=== PATIENT | female | born 1955 | race Caucasian/White ===

== ENCOUNTER 2021-04-07 11:49 | Observation (INO) | payer BC ==
[2021-04-07 12:39] LABS: BASOPHIL % 0.3 % (0.0-0.4); Basophil (Absolute #) 0.02 (0-0.4); Eosinophil % 2.2 % (0.00-5.0); Eosinophil (Absolute #) 0.14 (0-0.5); Hematocrit 37.1 % (35-47); Hemoglobin 11.8 gm/dl (12.0-16.0); Lymphocyte (Absolute #) 1.12 (1.0-4.6); Lymphocytes % 17.7 % (24.0-44.0); Mean Cell Volume 97.6 fl (78-100); Mean Corpuscular Hemoglobin 31.1 pg (26-32); Mean Corpuscular Hgb Concent. 31.8 g/dl (32-36); Monocyte (Absolute #) 0.45 (0.0-1.3); Monocytes % 7.1 % (0.0-12.0); Neutrophil % 72.7 % (36.0-66.0); Platelet Count 232 K/mm3 (150-450); Red Cell Distribution Width 13.3 % (11.5-14.0); White Blood Count 6.3 K/mm3 (4.0-10.5)
[2021-04-07 12:52] LABS: ALBUMIN 4.5 g/dL (3.5-5.0); ALKALINE PHOSPHATASE 108 U/L (38-126); ANION GAP 14.5 MEQ/L (5-15); BLOOD UREA NITROGEN 23 mg/dL (7-17); CHLORIDE 105 mmol/L (98-107); Calcium 9.9 mg/dL (8.4-10.2); Carbon Dioxide 26 mmol/L (22-30); Creatinine 1 0.62 mg/dL (0.52-1.04); EST GLOMERULAR FILTRATION RATE > 60.0 ML/MIN; Glucose 102 mg/dL (74-106); Potassium 3.7 mmol/L (3.5-5.1); SGOT/AST 34 U/L (14-36); SGPT/ALT 40 U/L (0-35); SODIUM 141 mmol/L (137-145); Total Protein 7.2 g/dL (6.3-8.2)
--- NOTE | 2021-04-07 13:02 | ERPHSYRPT ---
- History of Present Illness Time Seen by Provider: 04/07/21 11:54 Source: patient Exam Limitations: no limitations Patient Subjective Stated Complaint: "I think I had a stroke." slurred speech noticed at 1030. last known well before bed last night around 1200. Triage Nursing Assessment: pt to ED c/o possible CVA. reports slurred speech first noticed today at 1030, last known well 1200 last night. lives alone, attempted to make phone call this am and noticed "just not talking right." no other assocaited CVA sx now. hx CVA last in January - c/o BORJAS at that time. no BORJAS reported today. Physician History: 66 years old female with multiple medical problems including multiple strokes in the past, on Eliquis presented in the ER with chief complaint of slurring of speech which she noticed this morning upon waking up trying to make a call, realized her speech was not normal. It is gradually improving but still not back to her baseline. Last well-known is around midnight last night. Denies any blurry vision, double vision, facial drooping, numbness tingling or focal weakness. Off-and-on headache but currently headache free. No sick contact. Time of Onset/Last Time Seen Normal: 04/06/21 1159PM Severity: mild Baseline/Normal Cognition: alert oriented x 3 Current Cognition: alert oriented x 3 Baseline Gait: walks w/o assistance Associated Symptoms: slurred speech Allergies/Adverse Reactions: HARITHA Inhibitors Adverse Reaction (Verified 04/07/21 12:15) Cough Hx Tetanus, Diphtheria Vaccination/Date Given: Yes Hx Influenza Vaccination/Date Given: No Hx Pneumococcal Vaccination/Date Given: No Immunizations Up to Date: No Travel Risk - International Travel Have you traveled outside of the country in past 3 weeks: No - Coronavirus Screening Are you exhibiting any of the following symptoms?: No Close contact with a COVID-19 positive Pt in past 14-21 Days: No - Vaccine Status Have you recieved a Covid-19 vaccination: No - Review of Systems Constitutional: No Symptoms Eyes: No Symptoms Ears, Nose, & Throat: No Symptoms Respiratory: No Symptoms Cardiac: No Symptoms Abdominal/Gastrointestinal: No Symptoms Genitourinary Symptoms: No Symptoms Musculoskeletal: No Symptoms Skin: No Symptoms Neurological: Speech Changes Psychological: Anxiety Endocrine: No Symptoms Hematologic/Lymphatic: No Symptoms Immunological/Allergic: No Symptoms - Past Medical History Pertinent Past Medical History: Yes Neurological History: Stroke Cardiac History: High Cholesterol, Hypertension Respiratory History: Asthma, Sleep Apnea Other Medical History: 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 tumor removal - Social History Smoking Status: Never smoker Exposure to second hand smoke: No Drug Use: none Patient Lives Alone: Yes - Nursing Vital Signs Nursing Vital Signs: Initial Vital Signs Temperature 97.5 F 04/07/21 11:51 Pulse Rate 87 04/07/21 11:51 Respiratory Rate 20 04/07/21 11:51 Blood Pressure 182/107 04/07/21 11:51 O2 Sat by Pulse Oximetry 99 04/07/21 11:51 Pain Scale Pain Intensity 0 - K[place] Coma Scale Best Eye Response ([place]): (4) open spontaneously Best Verbal Response ([place]): (5) oriented Best Motor Response ([place]): (6) obeys commands [place] Total: 15 - Physical Exam General Appearance: no apparent distress, alert, anxiety Eye Exam: bilateral eye: normal inspection, PERRL, EOMI Ears, Nose, Throat Exam: normal ENT inspection, TMs normal, pharynx normal, moist mucous membranes Neck Exam: normal inspection, non-tender, supple, full range of motion, No meningismus Respiratory: normal breath sounds, lungs clear Cardiovascular: regular rate/rhythm, normal heart sounds Gastrointestinal: soft, normal bowel sounds, No tenderness Back Exam: normal inspection Extremity Exam: normal inspection, normal range of motion, pelvis stable Mental Status: alert, oriented x 3, cooperative senior manager Exam: normal hearing, PERRL, No abnormal eye position, No facial asymmetry Coordination/Gait: normal finger to nose, normal gait, normal cerebellar function, negative Romberg's sign Motor/Sensory: no motor deficit, no sensory deficit, no pronator drift, negative Babinski's sign DTR: bicep (R): 2+, bicep (L): 2+, tricep (R): 2+, tricep (L): 2+, knee (R): 2+, knee (L): 2+ Skin Exam: normal color SpO2 Interpretation: normal SpO2: 99 O2 Delivery: Room Air - Course EKG Interpreted by Me: RATE (60), NORMAL AXIS, Q-wave (Inferior), Non-specific ST Changes, Other (Poor R wave progression. Nonspecific T wave changes) Ordered Tests: Active Orders 24 hr Category Date Time Status Motion Picture Narrator STAT Care 04/07/21 11:54 Active EKG-ER Only STAT Care 04/07/21 11:53 Active IV Insertion STAT Care 04/07/21 11:53 Active NPO (ED) STAT Care 04/07/21 11:53 Active Oxygen-ED Only Nasal Cannula 2 lpm Care 04/07/21 11:53 Active POCT Glucose Check STAT Care 04/07/21 11:53 Active CHEST 1 VIEW (PORTABLE) Stat Exams 04/07/21 11:53 Taken HEAD WITHOUT CONTRAST [CT] Stat Exams 04/07/21 11:53 Taken CBC W DIFF Stat Lab 04/07/21 12:22 Completed CMP Stat Lab 04/07/21 12:22 Completed Lactic Acid Stat Lab 04/07/21 12:22 Completed POCT GLUCOSE Stat Lab 04/07/21 12:30 Completed TROPONIN Q3H Lab 04/07/21 12:22 Received TROPONIN Q3H Lab 04/07/21 15:00 Ordered TROPONIN Q3H Lab 04/07/21 18:00 Ordered TROPONIN Q3H Lab 04/07/21 21:00 Ordered UA W/RFX UR CULTURE Stat Lab 04/07/21 11:53 Ordered Lab/Rad Data: Laboratory Result Diagrams 04/07/21 12:22 04/07/21 12:22 Laboratory Results 04/07/21 04/07/21 04/07/21 Range/Units 12:30 12:22 12:22 WBC (4.0-10.5) K/mm3 RBC (4.1-5.4) M/mm3 Hgb (12.0-16.0) gm/dl Hct (35-47) % MCV (78-100) fl MCH (26-32) pg MCHC (32-36) g/dl RDW (11.5-14.0) % Plt Count (150-450) K/mm3 MPV (7.5-11.0) fl Gran % (36.0-66.0) % Eos # (Auto) (0-0.5) Absolute Lymphs (auto) (1.0-4.6) Absolute Monos (auto) (0.0-1.3) Lymphocytes % (24.0-44.0) % Monocytes % (0.0-12.0) % Eosinophils % (0.00-5.0) % Basophils % (0.0-0.4) % Absolute Granulocytes (1.4-6.9) Basophils # (0-0.4) Sodium 141 (137-145) mmol/L Potassium 3.7 (3.5-5.1) mmol/L Chloride 105 (98-107) mmol/L Carbon Dioxide 26 (22-30) mmol/L Anion Gap 14.5 (5-15) MEQ/L BUN 23 H (7-17) mg/dL Creatinine 0.62 (0.52-1.04) mg/dL Estimated GFR > 60.0 ML/MIN Glucose 102 (74-106) mg/dL POC Glucometer 104 (74 to 106) mg/dL Lactic Acid (0.4-2.0) Calcium 9.9 (8.4-10.2) mg/dL Total Bilirubin 0.80 (0.2-1.3) mg/dL AST 34 (14-36) U/L ALT 40 H (0-35) U/L Alkaline Phosphatase 108 (38-126) U/L Troponin I < 0.012 (0.000-0.034) ng/mL Serum Total Protein 7.2 (6.3-8.2) g/dL Albumin 4.5 (3.5-5.0) g/dL 04/07/21 04/07/21 Range/Units 12:22 12:22 WBC 6.3 (4.0-10.5) K/mm3 RBC 3.80 L (4.1-5.4) M/mm3 Hgb 11.8 L (12.0-16.0) gm/dl Hct 37.1 (35-47) % MCV 97.6 (78-100) fl MCH 31.1 (26-32) pg MCHC 31.8 L (32-36) g/dl RDW 13.3 (11.5-14.0) % Plt Count 232 (150-450) K/mm3 MPV 10.0 (7.5-11.0) fl Gran % 72.7 H (36.0-66.0) % Eos # (Auto) 0.14 (0-0.5) Absolute Lymphs (auto) 1.12 (1.0-4.6) Absolute Monos (auto) 0.45 (0.0-1.3) Lymphocytes % 17.7 L (24.0-44.0) % Monocytes % 7.1 (0.0-12.0) % Eosinophils % 2.2 (0.00-5.0) % Basophils % 0.3 (0.0-0.4) % Absolute Granulocytes 4.60 (1.4-6.9) Basophils # 0.02 (0-0.4) Sodium (137-145) mmol/L Potassium (3.5-5.1) mmol/L Chloride (98-107) mmol/L Carbon Dioxide (22-30) mmol/L Anion Gap (5-15) MEQ/L BUN (7-17) mg/dL Creatinine (0.52-1.04) mg/dL Estimated GFR ML/MIN Glucose (74-106) mg/dL POC Glucometer (74 to 106) mg/dL Lactic Acid 0.7 (0.4-2.0) Calcium (8.4-10.2) mg/dL Total Bilirubin (0.2-1.3) mg/dL AST (14-36) U/L ALT (0-35) U/L Alkaline Phosphatase (38-126) U/L Troponin I (0.000-0.034) ng/mL Serum Total Protein (6.3-8.2) g/dL Albumin (3.5-5.0) g/dL - Progress Progress: unchanged, re-examined Progress Note: 04/07/21 13:06 She is made stroke activate, prompt CT head is obtained which is negative for acute findings but has old infarcts. NIH score of 1. Neurology consult is obtained via tele neuro services, do not think patient is a candidate for any kind of intervention at present but recommended routine stroke work-up. Chest x-ray no acute findings reviewed by me, official report is pending. Lab work grossly unremarkable discussed with , reviewed history and current work-up, agreed with admission. Plan discussed with patient who understand and agrees with it. 04/07/21 13:07 Discussed with .: Pineda Will see patient in: hospital (observation) Counseled pt/family regarding: lab results, diagnosis, rad results - Departure Departure Disposition: Observation Clinical Impression: Stroke-like symptoms Condition: Stable Critical Care Time: No Referrals: DOCTOR,NO FAMILY [Primary Care Provider] -
[2021-04-07 14:15] LABS: Appearance CLOUDY (CLEAR); Bacteria RARE /HPF (NEGATIVE); Bilirubin NEGATIVE (NEGATIVE); Blood NEGATIVE Ery/ul (0-5); Glucose NEGATIVE (NEGATIVE); Ketones NEGATIVE (NEGATIVE); Leukocyte Esterase NEGATIVE (NEGATIVE); Nitrite NEGATIVE (NEGATIVE); Protein,Urine Dip NEGATIVE (Negative); Specific Gravity 1.013 (1.005-1.025); Urobilinogen NEGATIVE mg/dL (0-1)
[2021-04-07] MEDS ORDERED: DUONEB 0.5-3 MG/3 ml Neb IH PRN (15:52)
[2021-04-07] MEDS ORDERED: TYLENOL 325 MG PO PRN (15:52)
[2021-04-07] MEDS ORDERED: Zofran 4 MG/2 ML VIAL IV PRN (15:52)
--- NOTE | 2021-04-07 15:54 | PCM.HP ---
History of Present Illness - Chief Complaint Chief Complaint: weakness since AM History of Present Illness: is a 66 year old female.with multiple medical problems including multiple strokes in the past, on Eliquis presented in the ER with chief complaint of slurring of speech which she noticed this morning upon waking up trying to make a call, realized her speech was not normal. It is gradually improving but still not back to her baseline. Last well-known is around midnight last night. Denies any blurry vision, double vision, facial drooping, numbness tingling or focal weakness. Off-and-on headache but currently headache free. No sick contact. - Review of Systems Constitutional: No Fever, No Chills Eyes: No Symptoms Ears, Nose, & Throat: No Symptoms Respiratory: No Cough, No Short Of Breath Cardiac: No Chest Pain, No Edema, No Syncope Abdominal/Gastrointestinal: No Abdominal Pain, No Nausea, No Vomiting, No Diarrhea Genitourinary Symptoms: No Dysuria Musculoskeletal: No Back Pain, No Neck Pain Skin: No Rash Neurological: No Dizziness, No Focal Weakness, No Sensory Changes Psychological: No Symptoms Endocrine: No Symptoms Hematologic/Lymphatic: No Symptoms Immunological/Allergic: No Symptoms Medications & Allergies Allergies/Adverse Reactions: Allergies Allergy/AdvReac Type Severity Reaction Status Date / Time HARITHA Inhibitors AdvReac Cough Verified 04/07/21 12:15 - Past Medical History Past Medical History: Yes Neurological History: Stroke Cardiac History: High Cholesterol, Hypertension Respiratory History: Asthma, Sleep Apnea Comment: 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 tumor removal - Social History Smoking Status: Never smoker Exposure to second hand smoke: No Alcohol: None Drug Use: none - Physical Exam Vital Signs: Vital Signs - 24 hr Temp Pulse Resp BP Pulse Ox 04/07/21 13:12 67 17 146/96 98 04/07/21 13:08 99 04/07/21 11:51 97.5 F 87 20 182/107 99 General Appearance: no apparent distress, alert Neurologic Exam: alert, oriented x 3, cooperative, normal mood/affect, nml cerebellar function, nml station & gait, sensation nml, No motor deficits Eye Exam: PERRL/EOMI, eyes nml inspection Ears, Nose, Throat Exam: normal ENT inspection, TMs normal, pharynx normal, moist mucous membranes Neck Exam: normal inspection, non-tender, supple, full range of motion Respiratory Exam: normal breath sounds, lungs clear, No respiratory distress Cardiovascular Exam: regular rate/rhythm, normal heart sounds, normal peripheral pulses Gastrointestinal/Abdomen Exam: soft, normal bowel sounds, No tenderness, No mass Back Exam: normal inspection, normal range of motion, No CVA tenderness, No vertebral tenderness Extremity Exam: normal inspection, normal range of motion, pelvis stable Skin Exam: normal color, warm, dry, No rash Lymphatic Exam: No adenopathy Results - Labs Lab/Micro Results: Lab Results-Last 24 Hours 04/07/21 04/07/21 04/07/21 Range/Units 11:53 12:22 12:22 WBC 6.3 (4.0-10.5) K/mm3 RBC 3.80 L (4.1-5.4) M/mm3 Hgb 11.8 L (12.0-16.0) gm/dl Hct 37.1 (35-47) % MCV 97.6 (78-100) fl MCH 31.1 (26-32) pg MCHC 31.8 L (32-36) g/dl RDW 13.3 (11.5-14.0) % Plt Count 232 (150-450) K/mm3 MPV 10.0 (7.5-11.0) fl Gran % 72.7 H (36.0-66.0) % Eos # (Auto) 0.14 (0-0.5) Absolute Lymphs (auto) 1.12 (1.0-4.6) Absolute Monos (auto) 0.45 (0.0-1.3) Lymphocytes % 17.7 L (24.0-44.0) % Monocytes % 7.1 (0.0-12.0) % Eosinophils % 2.2 (0.00-5.0) % Basophils % 0.3 (0.0-0.4) % Absolute Granulocytes 4.60 (1.4-6.9) Basophils # 0.02 (0-0.4) Sodium (137-145) mmol/L Potassium (3.5-5.1) mmol/L Chloride (98-107) mmol/L Carbon Dioxide (22-30) mmol/L Anion Gap (5-15) MEQ/L BUN (7-17) mg/dL Creatinine (0.52-1.04) mg/dL Estimated GFR ML/MIN Glucose (74-106) mg/dL POC Glucometer (74 to 106) mg/dL Lactic Acid 0.7 (0.4-2.0) Calcium (8.4-10.2) mg/dL Total Bilirubin (0.2-1.3) mg/dL AST (14-36) U/L ALT (0-35) U/L Alkaline Phosphatase (38-126) U/L Troponin I (0.000-0.034) ng/mL Serum Total Protein (6.3-8.2) g/dL Albumin (3.5-5.0) g/dL Urine Color YELLOW (YELLOW) Urine Appearance CLOUDY (CLEAR) Urine pH 6.0 (5-6) Ur Specific [place] 1.013 (1.005-1.025) Urine Protein NEGATIVE (Negative) Urine Ketones NEGATIVE (NEGATIVE) Urine Blood NEGATIVE (0-5) Phil/ul Urine Nitrite NEGATIVE (NEGATIVE) Urine Bilirubin NEGATIVE (NEGATIVE) Urine Urobilinogen NEGATIVE (0-1) mg/dL Ur Leukocyte Esterase NEGATIVE (NEGATIVE) Urine WBC (Auto) NONE (0-5) /HPF Urine RBC (Auto) 16-25 (0-2) /HPF U Epithel Cells (Auto) NONE (FEW) /HPF Urine Bacteria (Auto) RARE (NEGATIVE) /HPF Urine Culture Reflexed NO (NO) Urine Glucose NEGATIVE (NEGATIVE) mg/dL SARS-CoV-2 (PCR) (NEGATIVE) 04/07/21 04/07/21 04/07/21 Range/Units 12:22 12:22 12:30 WBC (4.0-10.5) K/mm3 RBC (4.1-5.4) M/mm3 Hgb (12.0-16.0) gm/dl Hct (35-47) % MCV (78-100) fl MCH (26-32) pg MCHC (32-36) g/dl RDW (11.5-14.0) % Plt Count (150-450) K/mm3 MPV (7.5-11.0) fl Gran % (36.0-66.0) % Eos # (Auto) (0-0.5) Absolute Lymphs (auto) (1.0-4.6) Absolute Monos (auto) (0.0-1.3) Lymphocytes % (24.0-44.0) % Monocytes % (0.0-12.0) % Eosinophils % (0.00-5.0) % Basophils % (0.0-0.4) % Absolute Granulocytes (1.4-6.9) Basophils # (0-0.4) Sodium 141 (137-145) mmol/L Potassium 3.7 (3.5-5.1) mmol/L Chloride 105 (98-107) mmol/L Carbon Dioxide 26 (22-30) mmol/L Anion Gap 14.5 (5-15) MEQ/L BUN 23 H (7-17) mg/dL Creatinine 0.62 (0.52-1.04) mg/dL Estimated GFR > 60.0 ML/MIN Glucose 102 (74-106) mg/dL POC Glucometer 104 (74 to 106) mg/dL Lactic Acid (0.4-2.0) Calcium 9.9 (8.4-10.2) mg/dL Total Bilirubin 0.80 (0.2-1.3) mg/dL AST 34 (14-36) U/L ALT 40 H (0-35) U/L Alkaline Phosphatase 108 (38-126) U/L Troponin I < 0.012 (0.000-0.034) ng/mL Serum Total Protein 7.2 (6.3-8.2) g/dL Albumin 4.5 (3.5-5.0) g/dL Urine Color (YELLOW) Urine Appearance (CLEAR) Urine pH (5-6) Ur Specific [place] (1.005-1.025) Urine Protein (Negative) Urine Ketones (NEGATIVE) Urine Blood (0-5) Phil/ul Urine Nitrite (NEGATIVE) Urine Bilirubin (NEGATIVE) Urine Urobilinogen (0-1) mg/dL Ur Leukocyte Esterase (NEGATIVE) Urine WBC (Auto) (0-5) /HPF Urine RBC (Auto) (0-2) /HPF U Epithel Cells (Auto) (FEW) /HPF Urine Bacteria (Auto) (NEGATIVE) /HPF Urine Culture Reflexed (NO) Urine Glucose (NEGATIVE) mg/dL SARS-CoV-2 (PCR) (NEGATIVE) 04/07/21 04/07/21 Range/Units 13:22 14:50 WBC (4.0-10.5) K/mm3 RBC (4.1-5.4) M/mm3 Hgb (12.0-16.0) gm/dl Hct (35-47) % MCV (78-100) fl MCH (26-32) pg MCHC (32-36) g/dl RDW (11.5-14.0) % Plt Count (150-450) K/mm3 MPV (7.5-11.0) fl Gran % (36.0-66.0) % Eos # (Auto) (0-0.5) Absolute Lymphs (auto) (1.0-4.6) Absolute Monos (auto) (0.0-1.3) Lymphocytes % (24.0-44.0) % Monocytes % (0.0-12.0) % Eosinophils % (0.00-5.0) % Basophils % (0.0-0.4) % Absolute Granulocytes (1.4-6.9) Basophils # (0-0.4) Sodium (137-145) mmol/L Potassium (3.5-5.1) mmol/L Chloride (98-107) mmol/L Carbon Dioxide (22-30) mmol/L Anion Gap (5-15) MEQ/L BUN (7-17) mg/dL Creatinine (0.52-1.04) mg/dL Estimated GFR ML/MIN Glucose (74-106) mg/dL POC Glucometer (74 to 106) mg/dL Lactic Acid (0.4-2.0) Calcium (8.4-10.2) mg/dL Total Bilirubin (0.2-1.3) mg/dL AST (14-36) U/L ALT (0-35) U/L Alkaline Phosphatase (38-126) U/L Troponin I < 0.012 (0.000-0.034) ng/mL Serum Total Protein (6.3-8.2) g/dL Albumin (3.5-5.0) g/dL Urine Color (YELLOW) Urine Appearance (CLEAR) Urine pH (5-6) Ur Specific [place] (1.005-1.025) Urine Protein (Negative) Urine Ketones (NEGATIVE) Urine Blood (0-5) Phil/ul Urine Nitrite (NEGATIVE) Urine Bilirubin (NEGATIVE) Urine Urobilinogen (0-1) mg/dL Ur Leukocyte Esterase (NEGATIVE) Urine WBC (Auto) (0-5) /HPF Urine RBC (Auto) (0-2) /HPF U Epithel Cells (Auto) (FEW) /HPF Urine Bacteria (Auto) (NEGATIVE) /HPF Urine Culture Reflexed (NO) Urine Glucose (NEGATIVE) mg/dL SARS-CoV-2 (PCR) NEGATIVE (NEGATIVE) Accuchecks Date 04/07/21 Time 12:48 - Radiology Impressions Radiology Exams & Impressions: Radiology Procedures Category Date Time Status CHEST 1 VIEW (PORTABLE) Stat Exams 04/07/21 11:53 Taken HEAD WITHOUT CONTRAST [CT] Stat Exams 04/07/21 11:53 Taken Assessment/Plan (1) TIA (transient ischemic attack) Current Visit: Yes Status: Acute Assessment & Plan: Chief Complaint Diagnosis Strokelike symptoms Allergies Allergy/AdvReac Type Severity Reaction Status Date / Time HARITHA Inhibitors AdvReac Cough Verified 04/07/21 12:15 Vital Signs (Last 24 hours) Temp Pulse Resp BP Pulse Ox 04/07/21 13:12 67 17 146/96 98 04/07/21 13:08 99 04/07/21 11:51 97.5 F 87 20 182/107 99 Current Medications Generic Name Dose Route Start Last Admin Trade Name Freq PRN Reason Stop Dose Admin Acetaminophen 650 mg 04/07/21 15:52 Tylenol 325 Mg PO 05/07/21 15:51 Q4H PRN PRN PAIN AND/OR FEVER Albuterol/Ipratropium 3 ml 04/07/21 15:52 Duoneb 0.5-3 Mg/3 Ml Neb IH 05/07/21 15:51 Q4HPRN PRN SHORTNESS OF BREATH/WHEEZING Ondansetron HCl 4 mg 04/07/21 15:52 Zofran 4 Mg/2 Ml Vial IV 05/07/21 15:51 Q6H PRN PRN NAUSEA/VOMITING Pantoprazole Sodium 40 mg 04/08/21 10:00 Protonix 40 Mg Iv IV 05/08/21 09:59 Q24H10 JED Intake & Output (Last 24 hours) 04/05/21 04/06/21 04/07/2107/21 11:59 11:59 11:59 11:59 Weight 71.3 kg Laboratory Results (Last 24 hours) 04/07/21 04/07/21 04/07/21 14:50 13:22 12:30 WBC RBC Hgb Hct MCV MCH MCHC RDW Plt Count MPV Gran % Eos # (Auto) Absolute Lymphs (auto) Absolute Monos (auto) Lymphocytes % Monocytes % Eosinophils % Basophils % Absolute Granulocytes Basophils # Sodium Potassium Chloride Carbon Dioxide Anion Gap BUN Creatinine Estimated GFR Glucose POC Glucometer 104 Lactic Acid Calcium Total Bilirubin AST ALT Alkaline Phosphatase Troponin I < 0.012 Serum Total Protein Albumin Urine Color Urine Appearance Urine pH Ur Specific [place] Urine Protein Urine Ketones Urine Blood Urine Nitrite Urine Bilirubin Urine Urobilinogen Ur Leukocyte Esterase Urine WBC (Auto) Urine RBC (Auto) U Epithel Cells (Auto) Urine Bacteria (Auto) Urine Culture Reflexed Urine Glucose SARS-CoV-2 (PCR) NEGATIVE 04/07/21 04/07/21 04/07/21 12:22 12:22 12:22 WBC RBC Hgb Hct MCV MCH MCHC RDW Plt Count MPV Gran % Eos # (Auto) Absolute Lymphs (auto) Absolute Monos (auto) Lymphocytes % Monocytes % Eosinophils % Basophils % Absolute Granulocytes Basophils # Sodium 141 Potassium 3.7 Chloride 105 Carbon Dioxide 26 Anion Gap 14.5 BUN 23 H Creatinine 0.62 Estimated GFR > 60.0 Glucose 102 POC Glucometer Lactic Acid 0.7 Calcium 9.9 Total Bilirubin 0.80 AST 34 ALT 40 H Alkaline Phosphatase 108 Troponin I < 0.012 Serum Total Protein 7.2 Albumin 4.5 Urine Color Urine Appearance Urine pH Ur Specific [place] Urine Protein Urine Ketones Urine Blood Urine Nitrite Urine Bilirubin Urine Urobilinogen Ur Leukocyte Esterase Urine WBC (Auto) Urine RBC (Auto) U Epithel Cells (Auto) Urine Bacteria (Auto) Urine Culture Reflexed Urine Glucose SARS-CoV-2 (PCR) 04/07/21 04/07/21 12:22 11:53 WBC 6.3 RBC 3.80 L Hgb 11.8 L Hct 37.1 MCV 97.6 MCH 31.1 MCHC 31.8 L RDW 13.3 Plt Count 232 MPV 10.0 Gran % 72.7 H Eos # (Auto) 0.14 Absolute Lymphs (auto) 1.12 Absolute Monos (auto) 0.45 Lymphocytes % 17.7 L Monocytes % 7.1 Eosinophils % 2.2 Basophils % 0.3 Absolute Granulocytes 4.60 Basophils # 0.02 Sodium Potassium Chloride Carbon Dioxide Anion Gap BUN Creatinine Estimated GFR Glucose POC Glucometer Lactic Acid Calcium Total Bilirubin AST ALT Alkaline Phosphatase Troponin I Serum Total Protein Albumin Urine Color YELLOW Urine Appearance CLOUDY Urine pH 6.0 Ur Specific [place] 1.013 Urine Protein NEGATIVE Urine Ketones NEGATIVE Urine Blood NEGATIVE Urine Nitrite NEGATIVE Urine Bilirubin NEGATIVE Urine Urobilinogen NEGATIVE Ur Leukocyte Esterase NEGATIVE Urine WBC (Auto) NONE Urine RBC (Auto) 16-25 U Epithel Cells (Auto) NONE Urine Bacteria (Auto) RARE Urine Culture Reflexed NO Urine Glucose NEGATIVE SARS-CoV-2 (PCR) Orders (Last 24 hours) Category Date Time Status Bedrest ROUTINE Activity 04/07/21 15:52 Active Up With Assistance ROUTINE Activity 04/07/21 15:52 Active Acetaldehyde Converter Operator STAT Care 04/07/21 11:54 Completed Code Status Order ROUTINE Care 04/07/21 15:52 Active EKG-ER Only STAT Care 04/07/21 11:53 Completed Fall Protocol ROUTINE Care 04/07/21 15:52 Active IV Care Q6H Care 04/07/21 15:52 Active IV Insertion STAT Care 04/07/21 11:53 Completed NPO (ED) STAT Care 04/07/21 11:53 Completed Neuro Checks Q2H Care 04/07/21 15:52 Active POCT Glucose Check ACHS Care 04/07/21 15:52 Active POCT Glucose Check STAT Care 04/07/21 11:[address] in Observation ROUTINE Care 04/07/21 15:52 Active Andrew Kowalski ROUTINE Care 04/07/21 15:52 Active Weight,Daily 0600 Care 04/07/21 15:52 Active Heart-Healthy Diet Diet 04/07/21 Dinner Active CHEST 1 VIEW (PORTABLE) Stat Exams 04/07/21 11:53 Taken HEAD WITHOUT CONTRAST [CT] Stat Exams 04/07/21 11:53 Taken CBC W DIFF AM.LAB Lab 04/08/21 04:00 Ordered CBC W DIFF Stat Lab 04/07/21 12:22 Completed CMP AM.LAB Lab 04/08/21 04:00 Ordered CMP Stat Lab 04/07/21 12:22 Completed Lactic Acid Stat Lab 04/07/21 12:22 Completed POCT GLUCOSE Stat Lab 04/07/21 12:30 Completed TROPONIN Q3H Lab 04/07/21 12:22 Completed TROPONIN Q3H Lab 04/07/21 14:50 Completed TROPONIN Q3H Lab 04/07/21 18:00 Ordered TROPONIN Q3H Lab 04/07/21 21:00 Ordered UA W/RFX UR CULTURE Stat Lab 04/07/21 11:53 Completed Acetaminophen 325 mg [Tylenol 325 mg] Med 04/07/21 15:52 Ordered 650 mg PO Q4H PRN PRN Albuterol/Ipratropium 3ml Neb* [DUONEB 0.5-3 MG/3 ml Med 04/07/21 15:52 Ordered Neb] 3 ml IH Q4HPRN PRN Ondansetron HCl 4 mg/2 ml [Zofran 4 MG/2 ML VIAL] Med 04/07/21 15:52 Ordered 4 mg IV Q6H PRN PRN Pantoprazole 40 mg [Protonix 40 mg IV] Med 04/08/21 10:00 Ordered 40 mg IV Q24H10 Transfer Order Routine Transfer 04/07/21 Completed Code(s): G45.9 - TRANSIENT CEREBRAL ISCHEMIC ATTACK, UNSPECIFIED
[2021-04-07] MEDS ORDERED: PROTONIX 40 MG IV IV SCH (17:00)
--- NOTE | 2021-04-07 18:35 | XRAY ---
Indication: Slurred speech. Comparison: None Portable chest demonstrates scattered tiny calcified granulomas. No focal infiltrate, consolidation, or large effusion. Heart not enlarged. Bony thorax intact with mild osteopenia and degenerative changes. Impression: Nonacute chest with chronic features.
--- NOTE | 2021-04-07 18:35 | XRAY ---
Indication: Slurred speech. Stroke January 2021. Multiple contiguous axial images obtained through the head without contrast. Comparison: No Age-appropriate global atrophy, moderate periventricular degenerative micro-ischemia bilaterally, and small remote infarct right periventricular white matter. No acute intracranial hemorrhage, abnormal extra-axial fluid collection, or mass effect. Fourth ventricle is midline without hydrocephalus. Bony calvarium intact. Visualized paranasal sinuses and mastoid air cells are clear. Impression: Nonacute senile brain with small remote infarct right periventricular white matter. Comment: Preliminary interpretation made by C. No critical discrepancy.
[2021-04-07] MEDS: ELIQUIS 2.5 MG TABLET PO SCH (21:39)
[2021-04-07] MEDS: Klor Con 10 MEQ PO SCH (21:39)
[2021-04-07] MEDS: VOLTAREN 50 MG PO SCH (21:40)
[2021-04-07] MEDS ORDERED: VITA-BEE WITH C PO SCH (22:00)
[2021-04-07] MEDS ORDERED: MAG-OX 400 PO SCH (22:00)
[2021-04-07] MEDS ORDERED: ZOCOR 20MG PO SCH (22:00)
[2021-04-07] MEDS ORDERED: PATIENT OWN MEDICATION PO SCH ×2 (22:00)
[2021-04-07] MEDS ORDERED: VITAMIN D PO SCH (22:00)
[2021-04-08 05:40] LABS: Absolute Neutrophil Ct (ANC) 5.09 (1.4-6.9); BASOPHIL % 0.5 % (0.0-0.4); Basophil (Absolute #) 0.04 (0-0.4); Eosinophil % 3.7 % (0.00-5.0); Eosinophil (Absolute #) 0.29 (0-0.5); Hematocrit 37.7 % (35-47); Hemoglobin 11.8 gm/dl (12.0-16.0); Lymphocyte (Absolute #) 1.74 (1.0-4.6); Lymphocytes % 22.4 % (24.0-44.0); Mean Cell Volume 98.4 fl (78-100); Mean Corpuscular Hemoglobin 30.8 pg (26-32); Mean Corpuscular Hgb Concent. 31.3 g/dl (32-36); Mean Platelet Volume 10.5 fl (7.5-11.0); Monocyte (Absolute #) 0.61 (0.0-1.3); Monocytes % 7.9 % (0.0-12.0); Neutrophil % 65.5 % (36.0-66.0); Platelet Count 251 K/mm3 (150-450); Red Blood Count 3.83 M/mm3 (4.1-5.4); Red Cell Distribution Width 13.3 % (11.5-14.0); White Blood Count 7.8 K/mm3 (4.0-10.5)
[2021-04-08 05:56] LABS: ALBUMIN 4.2 g/dL (3.5-5.0); ALKALINE PHOSPHATASE 98 U/L (38-126); ANION GAP 13.7 MEQ/L (5-15); BLOOD UREA NITROGEN 22 mg/dL (7-17); CHLORIDE 104 mmol/L (98-107); Calcium 9.6 mg/dL (8.4-10.2); Carbon Dioxide 25 mmol/L (22-30); Creatinine 1 0.72 mg/dL (0.52-1.04); EST GLOMERULAR FILTRATION RATE > 60.0 ML/MIN; Glucose 103 mg/dL (74-106); Potassium 3.9 mmol/L (3.5-5.1); SGOT/AST 33 U/L (14-36); SGPT/ALT 39 U/L (0-35); SODIUM 139 mmol/L (137-145); Total Protein 6.7 g/dL (6.3-8.2)
[2021-04-08] MEDS ORDERED: CALCIUM CARBONATE 1000 MG PO SCH (06:45)
[2021-04-08] MEDS ORDERED: MEDICATION INTERVENTION MC SCH (07:00)
[2021-04-08] MEDS ORDERED: Protonix 40MG Tablet PO SCH (10:00)
[2021-04-08] MEDS ORDERED: ASCORBIC ACID 1000 MG PO SCH (10:00)
[2021-04-08] MEDS ORDERED: LUTEIN PO SCH (10:00)
[2021-04-08] MEDS ORDERED: [UNRECOGNIZED DRUG - OTHER] PO SCH (10:00)
[2021-04-08] MEDS ORDERED: Vitamin B-12 500 MCG PO SCH (10:00)
[2021-04-08] MEDS ORDERED: ZYLOPRIM 100 MG PO SCH (10:00)
[2021-04-08] MEDS ORDERED: D3 PO SCH (10:00)
[2021-04-08] MEDS ORDERED: BOSWELLIA SERRA PO SCH (10:00)
[2021-04-08] MEDS ORDERED: NON-FORMULARY ITEM (Mecobalamin [B12 Active] 1,000 MCG) PO SCH (10:00)
[2021-04-08] MEDS ORDERED: Vitamin C 500 MG PO SCH (10:00)
[2021-04-08] MEDS ORDERED: FISH OIL 1,000 MG CAPSULE PO SCH (10:00)
[2021-04-08] MEDS ORDERED: IRON PO SCH (10:00)
[2021-04-08] MEDS ORDERED: MULTIVIT MIN PO SCH (10:00)
[2021-04-08] MEDS ORDERED: THERAGRAN MULTIVITAMIN PO SCH (10:00)
[2021-04-08] MEDS ORDERED: CLARITIN 10 MG PO SCH (10:00)
[2021-04-08] MEDS ORDERED: Voltaren GEL TP SCH (10:00)
[2021-04-08] MEDS ORDERED: NON-FORMULARY ITEM (Omega-3 Fatty Acids/Fish Oil [Fish Oil 1,000 Mg Capsule] 1 EACH) PO SCH (10:00)
[2021-04-08] MEDS ORDERED: NON-FORMULARY ITEM (Omeprazole [Omeprazole] 20 MG) PO SCH (10:00)
[2021-04-08] MEDS ORDERED: GLUCOSAMINE PO SCH (10:00)
[2021-04-08] MEDS ORDERED: FOLIC PO SCH (10:00)
[2021-04-08] MEDS: ELIQUIS 2.5 MG TABLET PO SCH (10:33)
[2021-04-08] MEDS: Klor Con 10 MEQ PO SCH (10:34)
[2021-04-08] MEDS: VOLTAREN 50 MG PO SCH (10:36)
--- NOTE | 2021-04-08 10:47 | XRAY ---
Indication: Confusion. Stroke. Sagittal, coronal, and axial MRI brain performed using pre and post T1, T2, FLAIR, diffusion, and ADC sequences. 13 cc Dotarem contrast used. Comparison: June 20, 2010. Again age-appropriate global atrophy with progressive worsening moderate periventricular degenerative micro-ischemia signal bilaterally. New remote lacunar infarcts in the periventricular white matter bilaterally. Left mid centrum semiovale demonstrates new 3 x 9 mm focus of restricted disc signal favoring acute ischemia. No acute intracranial hemorrhage, abnormal extra-axial fluid collection, or mass effect. Following gadolinium, there is no abnormal enhancing intra or extra-axial mass. Fourth ventricle is midline without hydrocephalus. 7/8 cranial nerve complex bilaterally symmetric. Normal flow void signal within the major intracerebral circulation. Normal appearing craniocervical junction and sella turcica. Paranasal sinuses are clear. Impression: 1. New acute micro-ischemia left mid centrum semiovale. No acute hemorrhage/mass effect. 2. Global atrophy with progressive worsening degenerative micro-ischemia bilaterally and new remote lacunar infarcts bilaterally. 2. Negative contrast exam.
[2021-04-08 12:40] VITALS: BP 165/72; PULSE 63; O2SAT 97
--- NOTE | 2021-04-08 20:50 | PCM.DS ---
Discharge Summary Date of Admission: 04/07/21 15:46 Admitting Physician: MEI RENE Primary Care Provider: LAWRENCE JOYA NP Allergies Allergies HARITHA Inhibitors Adverse Reaction (Verified 04/07/21 12:15) Cough Hospital Summary - Hospital Course Hospital Course: Chief Complaint Diagnosis Rule Out Stroke Allergies Allergy/AdvReac Type Severity Reaction Status Date / Time HARITHA Inhibitors AdvReac Cough Verified 04/07/21 12:15 Vital Signs (Last 24 hours) Temp Pulse Resp BP Pulse Ox 04/08/21 12:10 98.0 F 63 18 165/72 97 04/08/21 08:00 97.9 F 56 L 16 109/64 96 04/08/21 04:00 97.9 F 56 L 20 114/65 96 04/07/21 23:57 98.1 F 66 20 156/84 97 Home Medications Medication Instructions Recorded Confirmed Last Taken Type Allopurinol 100 mg [Zyloprim 100 mg PO DAILY 04/07/21 04/07/21 04/07/21 Hist ory 100 mg] Apixaban [Eliquis] 5 mg PO BID 04/07/21 04/07/21 04/07/21 History Ascorbic Acid [Vitamin C with Natalie 1,000 mg PO DAILY 04/07/21 04/07/21 04/07/21 History Hips] Atorvastatin Calcium 40 mg PO HS 04/07/21 04/07/21 04/06/21 History Calcium Carbonate [Calcium] 1,000 mg PO UD 04/07/21 04/07/21 04/06/21 History Chlorthalidone 12.5 mg PO HS 04/07/21 04/07/21 04/06/21 History Cholecalciferol (Vitamin D3) 1,000 unit PO HS 04/07/21 04/07/21 04/06/21 History [Vitamin D3] Diclofenac Sodium Gel [Voltaren 100 gm TP DAILY 04/07/21 04/07/21 04/07/21 History GEL] Diclofenac Sodium [Voltaren] 75 mg PO BID 04/07/21 04/07/21 04/07/21 History Glucosamine/D3/Boswellia Lillie 1 each PO DAILY 04/07/21 04/07/21 04/07/21 History [Osteo Bi-Flex Tablet] Loratadine 10 mg [Claritin 10 10 mg PO DAILY 04/07/21 04/07/21 04/07/21 History mg] Magnesium Oxide [Magnesium] 400 mg PO HS 04/07/21 04/07/21 04/06/21 History Mecobalamin [B12 Active] 1,000 mcg PO DAILY 04/07/21 04/07/21 04/07/21 History Melatonin 3 mg PO HS 04/07/21 04/07/21 04/06/21 History Multivit-Min/Iron/Folic/Lutein 1 each PO DAILY 04/07/21 04/07/21 04/07/21 Histor y [Multivitamin Women 50 Plus Tab] [place]-3 Fatty Acids/Fish Oil [Fish 1 each PO DAILY 04/07/21 04/07/21 04/07/21 History Oil 1,000 mg Capsule] Omeprazole 20 mg PO DAILY 04/07/21 04/07/21 04/07/21 History Potassium Chloride [Klor-Con] 20 meq PO BID 04/07/21 04/07/21 04/07/21 History Risedronate Sodium 35 mg 35 mg PO UD 04/07/21 04/07/21 04/05/21 History [Actonel 35 MG Tablet] Ubidecarenone [Co Q-10] 100 mg PO 04/07/21 04/07/21 04/06/21 History Vitamin B Complex [B Complex] 1 each PO HS 04/07/21 04/07/21 04/07/21 History Current Medications Discontinued Medications Generic Name Dose Route Start Last Admin Trade Name Freq PRN Reason Stop Dose Admin Acetaminophen 650 mg 04/07/21 15:52 Tylenol 325 Mg PO 05/07/21 15:51 Q4H PRN PRN PAIN AND/OR FEVER Albuterol/Ipratropium 3 ml 04/07/21 15:52 Duoneb 0.5-3 Mg/3 Ml Neb IH 05/07/21 15:51 Q4HPRN PRN SHORTNESS OF BREATH/WHEEZING Allopurinol 100 mg 04/08/21 10:00 04/08/21 10:37 Zyloprim 100 Mg PO 05/08/21 09:59 100 mg DAILY JED Administration Apixaban 5 mg 04/07/21 22:00 04/08/21 10:33 Eliquis 2.5 Mg Tablet PO 05/07/21 21:59 5 mg BID [facility] Administration Ascorbic Acid 1,000 mg 04/08/21 10:00 04/08/21 10:35 Vitamin C 500 Mg PO 05/08/21 09:59 1,000 mg DAILY JED Administration Calcium Carbonate 2 tab 04/08/21 21:00 Calcium 500mg W/Vit D Tablet PO 05/08/21 20:59 Q48H JED Cholecalciferol 1,000 unit 04/07/21 22:00 04/07/21 21:39 Vitamin D PO 05/07/21 21:59 1,000 unit HS [facility] Administration Cyanocobalamin 1,000 mcg 04/08/21 10:00 04/08/21 10:34 Vitamin B-12 500 Mcg PO 05/08/21 09:59 1,000 mcg DAILY JED Administration Diclofenac Sodium 75 mg 04/07/21 22:00 04/08/21 10:36 Voltaren 50 Mg PO 05/07/21 21:59 75 mg BID JED Administration Diclofenac Sodium 100 gm 04/08/21 10:00 04/08/21 10:36 Voltaren Gel TP 05/08/21 09:59 100 gm DAILY JED Administration Fish Oil 1,000 mg 04/08/21 10:00 04/08/21 10:33 Fish Oil 1,000 Mg Capsule PO 05/08/21 09:59 1,000 mg DAILY JED Administration Loratadine 10 mg 04/08/21 10:00 04/08/21 10:33 Claritin 10 Mg PO 05/08/21 09:59 10 mg DAILY JED Administration Magnesium Oxide 400 mg 04/07/21 22:00 04/07/21 21:39 Mag-Ox 400 PO 05/07/21 21:59 400 mg HS [facility] Administration Miscellaneous Information 1 each 04/08/21 07:00 Medication Intervention MC 05/08/21 06:59 .RN TO CHECK WITH PT [facility] Multivitamins 1 tab 04/07/21 22:00 04/07/21 22:22 Evie-Bee With C PO 05/07/21 21:59 Not Given [facility] Multivitamins Therapeutic 1 tab 04/08/21 10:00 04/08/21 10:34 Theragran Multivitamin PO 05/08/21 09:59 1 tab DAILY JED Administration Ondansetron HCl 4 mg 04/07/21 15:52 Zofran 4 Mg/2 Ml Vial IV 05/07/21 15:51 Q6H PRN PRN NAUSEA/VOMITING Pantoprazole Sodium 40 mg 04/07/21 17:00 04/07/21 17:35 Protonix 40 Mg Iv IV 05/07/21 16:59 Not Given Q24H10 JED Pantoprazole Sodium 40 mg 04/08/21 10:00 04/08/21 10:34 Protonix 40mg Tablet PO 05/08/21 09:59 40 mg DAILY JED Administration Patient Own Med : 1 each 04/07/21 22:00 04/07/21 22:21 Chlorthalidone 12.5 PO 05/07/21 21:59 1 each Mg Tablet HS JED Administration Patient Own Med : Co 1 each 04/07/21 22:00 04/07/21 22:21 Q 10 100 Mg PO 05/07/21 21:59 1 each HS JED Administration Patient Own Med : 1 each 04/08/21 22:00 04/07/21 22:20 Vitamin B Complex PO 05/08/21 21:59 1 each HS JED Administration Patient Own Med : 1 each 04/08/21 22:00 04/07/21 22:21 Melatonin 3 Mg PO 05/08/21 21:59 1 each HS JDE Administration Potassium Chloride 20 meq 04/07/21 22:00 04/08/21 10:34 Klor Con 10 Meq PO 05/07/21 21:59 20 meq BID JED Administration Risedronate 35 mg 04/12/21 06:00 Actonel 35 Mg Tablet PO 05/12/21 05:59 Sa@0600 JED Simvastatin 40 mg 04/07/21 22:00 04/07/21 21:38 Zocor 20mg PO 05/07/21 21:59 40 mg HS JED Administration Intake & Output (Last 24 hours) 04/06/21 04/07/21 04/08/21 04/09/21 11:59 11:59 11:59 11:59 Intake Total 1020 240 Balance 1020 240 Weight 71.3 kg 68 kg Laboratory Results (Last 24 hours) 04/08/21 04/08/21 04/07/21 04:45 04:45 20:50 WBC 7.8 RBC 3.83 L Hgb 11.8 L Hct 37.7 MCV 98.4 MCH 30.8 MCHC 31.3 L RDW 13.3 Plt Count 251 MPV 10.5 Gran % 65.5 Eos # (Auto) 0.29 Absolute Lymphs (auto) 1.74 Absolute Monos (auto) 0.61 Lymphocytes % 22.4 L Monocytes % 7.9 Eosinophils % 3.7 Basophils % 0.5 Absolute Granulocytes 5.09 Basophils # 0.04 Sodium 139 Potassium 3.9 Chloride 104 Carbon Dioxide 25 Anion Gap 13.7 BUN 22 H Creatinine 0.72 Estimated GFR > 60.0 Glucose 103 Calcium 9.6 Total Bilirubin 0.60 AST 33 ALT 39 H Alkaline Phosphatase 98 Troponin I < 0.012 Serum Total Protein 6.7 Albumin 4.2 Orders (Last 24 hours) Category Date Time Status Discharge Routine Discharge 04/08/21 Ordered Discharge/Telephone Order Routine Discharge 04/08/21 Active MRI BRAIN W & W/O CONTRAST [MRI] Urgent Exams 04/08/21 08:00 Completed CBC W DIFF AM.LAB Lab 04/08/21 04:45 Completed CMP AM.LAB Lab 04/08/21 04:45 Completed TROPONIN Q3H Lab 04/07/21 20:50 Completed Allopurinol 100 mg [Zyloprim 100 mg] Med 04/08/21 10:00 Discontinued 100 mg PO DAILY Apixaban [Eliquis 2.5 mg Tablet] Med 04/07/21 22:00 Discontinued 5 mg PO BID Ascorbic Acid 500 mg [Vitamin C 500 MG] Med 04/08/21 10:00 Discontinued 1,000 mg PO DAILY Calcium Carb/Vitamin D 500 mg* [Calcium 500MG W/Vit D Med 04/08/21 21:00 Discontinued Tablet] 2 tab PO Q48H Cholecalciferol (Vitamin D3) [Vitamin D] Med 04/07/21 22:00 Discontinued 1,000 unit PO HS Cyanocobalamin 500 Mcg [Vitamin B-12 500 MCG] Med 04/08/21 10:00 Discontinued 1,000 mcg PO DAILY Diclofenac Sodium 50 mg [Voltaren 50 mg] Med 04/07/21 22:00 Discontinued 75 mg PO BID Diclofenac Sodium Gel [Voltaren GEL] Med 04/08/21 10:00 Discontinued 100 gm TP DAILY Loratadine 10 mg [Claritin 10 mg] Med 04/08/21 10:00 Discontinued 10 mg PO DAILY Magnesium Oxide 400 mg [Mag-Ox 400] Med 04/07/21 22:00 Discontinued 400 mg PO HS Medication Intervention Med 04/08/21 07:00 Discontinued 1 each MC .RN TO CHECK WITH PT Multivitamins,Therapeutic Tab* [Theragran Multivitamin* Med 04/08/21 10:00 Discontinued ] 1 tab PO DAILY [place]-3 Fatty Acids/Fish Oil [Fish Oil 1,000 mg Med 04/08/21 10:00 Discontinued Capsule] 1,000 mg PO DAILY PANTOPRAZOLE 40 mg Tablet [Protonix 40MG Tablet] Med 04/08/21 10:00 Discontinued 40 mg PO DAILY Patient Own Med [Patient Own Medication] Med 04/07/21 22:00 Discontinued 1 each PO HS Patient Own Med [Patient Own Medication] Med 04/07/21 22:00 Discontinued 1 each PO HS Patient Own Med [Patient Own Medication] Med 04/08/21 22:00 Discontinued 1 each PO HS Patient Own Med [Patient Own Medication] Med 04/08/21 22:00 Discontinued 1 each PO HS Potassium Chloride 10 Meq Tab* [Klor Con 10 MEQ] Med 04/07/21 22:00 Discontinued 20 meq PO BID Risedronate Sodium 35 mg [Actonel 35 MG Tablet] Med 04/12/21 06:00 Discontinued 35 mg PO Sa@0600 Simvastatin 20Mg [Zocor 20Mg] Med 04/07/21 22:00 Discontinued 40 mg PO HS Vitamin B Comp W-C [Evie-Bee with C] Med 04/07/21 22:00 Discontinued 1 tab PO HS Patient Care Notes (Last 24 hours) 04/08/21 15:03 Discharge Note by Viv Pritchett patient was discharged home. Daughter here to mushroom picker. patient verbalized understanding of all discharge instructions. Patient wheeled to front per RN. Initialized on 04/08/21 15:03 - END OF NOTE - Vitals & Intake/Output Vital Signs: Vital Signs Temperature 98.0 F 04/08/21 12:10 Pulse Rate 63 04/08/21 12:10 Respiratory Rate 18 04/08/21 12:10 Blood Pressure 165/72 04/08/21 12:10 O2 Sat by Pulse Oximetry 97 04/08/21 12:10 Intake & Output: Intake & Output 04/06/21 04/07/21 04/08/21 04/09/21 11:59 11:59 11:59 11:59 Intake Total 1020 240 Balance 1020 240 Weight 71.3 kg 68 kg - Lab Result Diagrams: 04/08/21 04:45 04/08/21 04:45 Lab Results-Last 24 Hrs: Lab Results-Last 24 Hours 04/07/21 04/08/21 04/08/21 Range/Units 20:50 04:45 04:45 WBC 7.8 (4.0-10.5) K/mm3 RBC 3.83 L (4.1-5.4) M/mm3 Hgb 11.8 L (12.0-16.0) gm/dl Hct 37.7 (35-47) % MCV 98.4 (78-100) fl MCH 30.8 (26-32) pg MCHC 31.3 L (32-36) g/dl RDW 13.3 (11.5-14.0) % Plt Count 251 (150-450) K/mm3 MPV 10.5 (7.5-11.0) fl Gran % 65.5 (36.0-66.0) % Eos # (Auto) 0.29 (0-0.5) Absolute Lymphs (auto) 1.74 (1.0-4.6) Absolute Monos (auto) 0.61 (0.0-1.3) Lymphocytes % 22.4 L (24.0-44.0) % Monocytes % 7.9 (0.0-12.0) % Eosinophils % 3.7 (0.00-5.0) % Basophils % 0.5 (0.0-0.4) % Absolute Granulocytes 5.09 (1.4-6.9) Basophils # 0.04 (0-0.4) Sodium 139 (137-145) mmol/L Potassium 3.9 (3.5-5.1) mmol/L Chloride 104 (98-107) mmol/L Carbon Dioxide 25 (22-30) mmol/L Anion Gap 13.7 (5-15) MEQ/L BUN 22 H (7-17) mg/dL Creatinine 0.72 (0.52-1.04) mg/dL Estimated GFR > 60.0 ML/MIN Glucose 103 (74-106) mg/dL Calcium 9.6 (8.4-10.2) mg/dL Total Bilirubin 0.60 (0.2-1.3) mg/dL AST 33 (14-36) U/L ALT 39 H (0-35) U/L Alkaline Phosphatase 98 (38-126) U/L Troponin I < 0.012 (0.000-0.034) ng/mL Serum Total Protein 6.7 (6.3-8.2) g/dL Albumin 4.2 (3.5-5.0) g/dL - Radiology Exams Ordered Rad Exams-Entire Visit: Radiology Procedures Category Date Time Status CHEST 1 VIEW (PORTABLE) Stat Exams 04/07/21 11:53 Completed HEAD WITHOUT CONTRAST [CT] Stat Exams 04/07/21 11:53 Completed MRI BRAIN W & W/O CONTRAST [MRI] Urgent Exams 04/08/21 08:00 Completed - Procedures and Test Procedures and Tests throughout Hospitalization: Therapy Orders & Screens 04/07/21 17:35 Respiratory Therapy Assessment DAILY Comment: Diagnosis: Rule Out Stroke Discharge Exam General Appearance: no apparent distress, alert Neurologic Exam: alert, oriented x 3, cooperative, normal mood/affect, nml cerebellar function, sensation nml, No motor deficits Eye Exam: PERRL, EOMI, eyes nml inspection Ears, Nose, Throat Exam: normal ENT inspection, pharynx normal, moist mucous membranes Neck Exam: normal inspection, non-tender, supple, full range of motion Respiratory Exam: normal breath sounds, lungs clear, No respiratory distress Cardiovascular Exam: regular rate/rhythm, normal heart sounds Gastrointestinal/Abdomen Exam: soft, No tenderness, No mass Pelvic Exam: deferred Rectal Exam: deferred Back Exam: normal inspection, normal range of motion, No CVA tenderness, No vertebral tenderness Extremity Exam: normal inspection, normal range of motion Skin Exam: normal color, warm, dry Final Diagnosis/Problem List - Final Discharge Diagnosis/Problem (1) TIA (transient ischemic attack) Status: Acute Assessment & Plan: Last Vital Signs Temp 98.0 F 04/08/21 12:10 Pulse 63 04/08/21 12:10 Resp 18 04/08/21 12:10 BP 165/72 04/08/21 12:10 Pulse Ox 97 04/08/21 12:10 Allergies HARITHA Inhibitors Adverse Reaction (Verified 04/07/21 12:15) Cough Intake & Output 04/08/21 04/09/21 11:59 11:59 Intake Total 1020 240 Balance 1020 240 Weight 68 kg Orders 04/08/21 Discharge Routine Discharge/Telephone Order Routine Lab Tests 04/07/21 04/08/21 04/08/21 20:50 04:45 04:45 WBC 7.8 RBC 3.83 L Hgb 11.8 L Hct 37.7 MCV 98.4 MCH 30.8 MCHC 31.3 L RDW 13.3 Plt Count 251 MPV 10.5 Gran % 65.5 Eos # (Auto) 0.29 Absolute Lymphs (auto) 1.74 Absolute Monos (auto) 0.61 Lymphocytes % 22.4 L Monocytes % 7.9 Eosinophils % 3.7 Basophils % 0.5 Absolute Granulocytes 5.09 Basophils # 0.04 Sodium 139 Potassium 3.9 Chloride 104 Carbon Dioxide 25 Anion Gap 13.7 BUN 22 H Creatinine 0.72 Estimated GFR > 60.0 Glucose 103 Calcium 9.6 Total Bilirubin 0.60 AST 33 ALT 39 H Alkaline Phosphatase 98 Troponin I < 0.012 Serum Total Protein 6.7 Albumin 4.2 MRI/MRI BRAIN W & W/O CONTRAST Indication: Confusion. Stroke. Sagittal, coronal, and axial MRI brain performed using pre and post T1, T2, FLAIR, diffusion, and ADC sequences. 13 cc Dotarem contrast used. Comparison: June 20, 2010. Again age-appropriate global atrophy with progressive worsening moderate periventricular degenerative micro-ischemia signal bilaterally. New remote lacunar infarcts in the periventricular white matter bilaterally. Left mid centrum semiovale demonstrates new 3 x 9 mm focus of restricted disc signal favoring acute ischemia. No acute intracranial hemorrhage, abnormal extra-axial fluid collection, or mass effect. Following gadolinium, there is no abnormal enhancing intra or extra-axial mass. Fourth ventricle is midline without hydrocephalus. 7/8 cranial nerve complex bilaterally symmetric. Normal flow void signal within the major intracerebral circulation. Normal appearing craniocervical junction and sella turcica. Paranasal sinuses are clear. Impression: 1. New acute micro-ischemia left mid centrum semiovale. No acute hemorrhage/mass effect. 2. Global atrophy with progressive worsening degenerative micro-ischemia bilaterally and new remote lacunar infarcts bilaterally. 2. Negative contrast exam. Code(s): G45.9 - TRANSIENT CEREBRAL ISCHEMIC ATTACK, UNSPECIFIED - Discharge Discharge Date: 04/08/21 Disposition: Home, Self-Care Condition: Stable Prescriptions: No Action Glucosamine/D3/Boswellia Lillie [Osteo Bi-Flex Tablet] 1 each PO DAILY Diclofenac Sodium Gel [Voltaren GEL] 100 gm TP DAILY Risedronate Sodium 35 mg [Actonel 35 MG Tablet] 35 mg PO UD Magnesium Oxide [Magnesium] 400 mg PO HS Cholecalciferol (Vitamin D3) [Vitamin D3] 1,000 unit PO HS Ubidecarenone [Co Q-10] 100 mg PO HS Chlorthalidone 12.5 mg PO HS Atorvastatin Calcium 40 mg PO HS Vitamin B Complex [B Complex] 1 each PO HS Calcium Carbonate [Calcium] 1,000 mg PO UD Diclofenac Sodium [Voltaren] 75 mg PO BID Potassium Chloride [Klor-Con] 20 meq PO BID Apixaban [Eliquis] 5 mg PO BID Allopurinol 100 mg [Zyloprim 100 mg] 100 mg PO DAILY Loratadine 10 mg [Claritin 10 mg] 10 mg PO DAILY Mecobalamin [B12 Active] 1,000 mcg PO DAILY Ascorbic Acid [Vitamin C with Natalie Hips] 1,000 mg PO DAILY [place]-3 Fatty Acids/Fish Oil [Fish Oil 1,000 mg Capsule] 1 each PO DAILY Multivit-Min/Iron/Folic/Lutein [Multivitamin Women 50 Plus Tab] 1 each PO DAILY Omeprazole 20 mg PO DAILY Melatonin 3 mg PO HS Instructions: Transient Ischemic Attack (DC) Additional Instructions: Continue blood thinner. Keep all previously scheduled appointments (sleep study and appointment with insulation professional) Schedule an appointment with your Primary care provider within 1 week. Follow up with: LAWRENCE JOYA NP [Primary Care Provider] -
[2021-04-08] MEDS ORDERED: Calcium 500MG W/Vit D Tablet PO SCH (21:00)
[2021-04-08] MEDS ORDERED: PATIENT OWN MEDICATION PO SCH ×2 (22:00)
[2021-04-12] MEDS ORDERED: ACTONEL 35 MG PO SCH (06:00)
== END 2021-04-08 14:45 | disposition home or self-care (01) ==
LOC: ED 11:49 → MED SURG 15:46
PROVIDERS: ADMIT General Practice; ATTEND General Practice
DX: G45.9 Transient cerebral ischemic attack, unspecified (principal); I10 Essential (primary) hypertension; E78.00 Pure hypercholesterolemia, unspecified; Z20.822 Contact with and (suspected) exposure to COVID-19; E78.5 Hyperlipidemia, unspecified; Z79.01 Long term (current) use of anticoagulants; Z79.899 Other long term (current) drug therapy; Z86.73 Personal history of transient ischemic attack (TIA), and cerebral infarction without residual deficits
CPT/HCPCS: 36000; 36415; 70450; 70553; 71045; 80053; 81001; 82947; 83036; 83605; 84484; 85025; 93005; 93041; 93268; 94760; 99285; G0378; U0003; A9270-GY